=== PATIENT | male | born 1960 | race Caucasian/White ===

== ENCOUNTER 2021-04-09 12:04 | Observation (INO) | payer MEDICARE ==
[2021-04-09 12:50] LABS: Basophils # (A) 0.1 k/uL (0-0.2); Basophils % (A) 1 %; Eosinophils # (A) 0.2 k/uL (0-0.7); Eosinophils % (A) 3 %; HCT 51.4 % (39.0-53.0); HGB 17.3 gm/dL (13.0-17.5); Lymphocytes # (A) 2.3 k/uL (1.0-4.8); Lymphocytes % (A) 28 %; MCH 31.8 pg (25.0-35.0); MCHC 33.6 g/dL (31.0-37.0); MCV 94.8 fL (80.0-100.0); Mean Platelet Volume 7.6; Monocytes # (A) 0.5 k/uL (0-1.0); Monocytes % (A) 7 %; Neutrophils # (A) 4.8 k/uL (1.3-7.7); Neutrophils % (A) 60 %; Platelet Count 272 k/uL (150-450); RBC 5.42 m/uL (4.30-5.90); RDW 12.2 % (11.5-15.5)
[2021-04-09 12:59] LABS: INR 0.9 (<1.2); Prothrombin Time 9.9 sec (9.0-12.0)
[2021-04-09 13:06] LABS: ALT 35 U/L (4-49); AST 35 U/L (17-59); African American GFR (CKD) >90 (>60 ml/min/1.73 sqM); Albumin 4.2 g/dL (3.5-5.0); Alkaline Phosphatase 90 U/L (38-126); Anion Gap 7 mmol/L; Blood Urea Nitrogen 11 mg/dL (9-20); Calcium 9.4 mg/dL (8.4-10.2); Carbon Dioxide 28 mmol/L (22-30); Chloride 103 mmol/L (98-107); Glucose 110 mg/dL (74-99); Non-African American GFR(CKD) >90 (>60 ml/min/1.73 sqM); Potassium 4.4 mmol/L (3.5-5.1); Sodium 138 mmol/L (137-145); Total Bilirubin 0.2 mg/dL (0.2-1.3); Total Protein 6.9 g/dL (6.3-8.2)
--- NOTE | 2021-04-09 13:37 | XR ---
EXAMINATION TYPE: XR chest 2V DATE OF EXAM: 04/09/2021 COMPARISON: NONE HISTORY: Chest pain. Shortness of breath. TECHNIQUE: Frontal and lateral views of the chest are obtained. FINDINGS: There is no focal air space opacity, pleural effusion, or pneumothorax seen. The cardiac silhouette size is within normal limits. The osseous structures are intact. IMPRESSION: No acute cardiopulmonary process.
[2021-04-09] MEDS ORDERED: ASPIRIN 81 MG PO STA (14:00)
[2021-04-09] MEDS ORDERED: NITROGLYCERIN OINT 1 INCH/GM PACKET TOPICAL STA (14:00)
[2021-04-09] MEDS ORDERED: ACETAMINOPHEN TAB 500 MG TAB PO STA (14:15)
--- NOTE | 2021-04-09 14:19 | ED ---
General Adult HPI - General Chief complaint: Chest Pain Stated complaint: Recheck/Abnormal EKG Time Seen by Provider: 04/09/21 12:10 Source: patient, RN notes reviewed, old records reviewed Mode of arrival: ambulatory Limitations: no limitations - History of Present Illness Initial comments: This is a 60-year-old male who presents emergency Department complaining of intermittent chest pain for the last 2 weeks. Patient states is also associated with exertion and difficulty breathing. Patient states the pain on occasion will radiate to his left shoulder and arm. Patient states she is a heavy smoker does not have any other medical problems. Patient states she does have strong family history of heart disease. Patient states currently he is pain-free. Patient denies any recent fever chills or cough. Patient has noticed over the last few weeks he is having some difficulty hearing and some tinnitus. Patient denies any visual disturbances patient's disturbance or numbness or weakness. Patient does complain of a headache. Patient denies any leg swelling or calf tenderness. - Related Data Allergies Allergy/AdvReac Type Severity Reaction Status Date / Time No Known Allergies Allergy Verified 04/09/21 12:21 Review of Systems ROS Statement: Those systems with pertinent positive or pertinent negative responses have been documented in the HPI. ROS Other: All systems not noted in ROS Statement are negative. Past Medical History Additional Past Medical History / Comment(s): migraine, skin ca History of Any Multi-Drug Resistant Organisms: None Reported Additional Past Surgical History / Comment(s): skin cancer removal Past Psychological History: No Psychological Hx Reported Smoking Status: Current some day smoker Past Alcohol Use History: None Reported Past Drug Use History: None Reported General Exam - General Exam Comments Initial Comments: GENERAL: Patient is well-developed and well-nourished. Patient is nontoxic and well- hydrated and is in no acute distress. ENT: Neck is soft and supple. No significant lymphadenopathy is noted. Oropharynx is clear. Moist mucous membranes. Neck has full range of motion without eliciting any pain. EYES: The sclera were anicteric and conjunctiva were pink and moist. Extraocular movements were intact and pupils were equal round and reactive to light. Eyelids were unremarkable. PULMONARY: Unlabored respirations. Good breath sounds bilaterally. No audible rales rhonchi or wheezing was noted. CARDIOVASCULAR: There is a regular rate and rhythm without any murmurs gallops or rubs. ABDOMEN: Soft and nontender with normal bowel sounds. SKIN: Skin is clear with no lesions or rashes and otherwise unremarkable. NEUROLOGIC: Patient is alert and oriented x3. Cranial nerves II through XII are grossly intact. Motor and sensory are also intact. Normal speech, volume and content. Symmetrical smile. MUSCULOSKELETAL: Normal extremities with adequate strength and full range of motion. LYMPHATICS: No significant lymphadenopathy is noted PSYCHIATRIC: Normal psychiatric evaluation. Limitations: no limitations Course Vital Signs 04/09/21 04/09/21 12:18 14:00 Temperature 98.2 F Pulse Rate 82 Respiratory 18 18 Rate Blood Pressure 170/103 O2 Sat by Pulse 98 Oximetry Medical Decision Making - Medical Decision Making EKG shows normal sinus rhythm at 83 bpm LA interval is on a 14 QRS is 82 QT interval 370 QTC is 444 per patient's EKG shows no ST segment elevation or depression. Chest x-ray showed no acute abnormality. CT of the brain showed no acute abnormality. I started the patient on heparin. Patient received aspirin and Nitropaste to the emergency department. I spoke with the [facility] he agreed to admit the patient admitted the patient wrote admitting orders I consulted cardiology and I continued aspirin and heparin Nitropaste on the floor. - Lab Data Result diagrams: 04/09/21 12:39 04/09/21 12:39 Lab Results 04/09/21 04/09/21 04/09/21 Range/Units 12:39 12:39 12:39 WBC 8.0 (3.8-10.6) k/uL RBC 5.42 (4.30-5.90) m/uL Hgb 17.3 (13.0-17.5) gm/dL Hct 51.4 (39.0-53.0) % MCV 94.8 (80.0-100.0) fL MCH 31.8 (25.0-35.0) pg MCHC 33.6 (31.0-37.0) g/dL RDW 12.2 (11.5-15.5) % Plt Count 272 (150-450) k/uL MPV 7.6 Neutrophils % 60 % Lymphocytes % 28 % Monocytes % 7 % Eosinophils % 3 % Basophils % 1 % Neutrophils # 4.8 (1.3-7.7) k/uL Lymphocytes # 2.3 (1.0-4.8) k/uL Monocytes # 0.5 (0-1.0) k/uL Eosinophils # 0.2 (0-0.7) k/uL Basophils # 0.1 (0-0.2) k/uL PT 9.9 (9.0-12.0) sec INR 0.9 (<1.2) APTT 25.0 (22.0-30.0) sec Sodium 138 (137-145) mmol/L Potassium 4.4 (3.5-5.1) mmol/L Chloride 103 (98-107) mmol/L Carbon Dioxide 28 (22-30) mmol/L Anion Gap 7 mmol/L BUN 11 (9-20) mg/dL Creatinine 0.76 (0.66-1.25) mg/dL Est GFR (CKD-EPI)AfAm >90 (>60 ml/min/1.73 sqM) Est GFR (CKD-EPI)NonAf >90 (>60 ml/min/1.73 sqM) Glucose 110 H (74-99) mg/dL Calcium 9.4 (8.4-10.2) mg/dL Total Bilirubin 0.2 (0.2-1.3) mg/dL AST 35 (17-59) U/L ALT 35 (4-49) U/L Alkaline Phosphatase 90 (38-126) U/L Troponin I (0.000-0.034) ng/mL Total Protein 6.9 (6.3-8.2) g/dL Albumin 4.2 (3.5-5.0) g/dL 04/09/21 Range/Units 12:39 WBC (3.8-10.6) k/uL RBC (4.30-5.90) m/uL Hgb (13.0-17.5) gm/dL Hct (39.0-53.0) % MCV (80.0-100.0) fL MCH (25.0-35.0) pg MCHC (31.0-37.0) g/dL RDW (11.5-15.5) % Plt Count (150-450) k/uL MPV Neutrophils % % Lymphocytes % % Monocytes % % Eosinophils % % Basophils % % Neutrophils # (1.3-7.7) k/uL Lymphocytes # (1.0-4.8) k/uL Monocytes # (0-1.0) k/uL Eosinophils # (0-0.7) k/uL Basophils # (0-0.2) k/uL PT (9.0-12.0) sec INR (<1.2) APTT (22.0-30.0) sec Sodium (137-145) mmol/L Potassium (3.5-5.1) mmol/L Chloride (98-107) mmol/L Carbon Dioxide (22-30) mmol/L Anion Gap mmol/L BUN (9-20) mg/dL Creatinine (0.66-1.25) mg/dL Est GFR (CKD-EPI)AfAm (>60 ml/min/1.73 sqM) Est GFR (CKD-EPI)NonAf (>60 ml/min/1.73 sqM) Glucose (74-99) mg/dL Calcium (8.4-10.2) mg/dL Total Bilirubin (0.2-1.3) mg/dL AST (17-59) U/L ALT (4-49) U/L Alkaline Phosphatase (38-126) U/L Troponin I <0.012 (0.000-0.034) ng/mL Total Protein (6.3-8.2) g/dL Albumin (3.5-5.0) g/dL Critical Care Time Critical Care Time: Yes Total Critical Care Time: 35 Disposition Clinical Impression: Unstable angina pectoris, Tinnitus Disposition: ADMITTED IP TO THIS [facility] Referrals: Nonstaff,Physician [Primary Care Provider] - 1-2 days Time of Disposition: 14:24
--- NOTE | 2021-04-09 14:20 | CT ---
EXAMINATION TYPE: CT brain wo con DATE OF EXAM: 04/09/2021 COMPARISON: None HISTORY: headache CT DLP: 1139.7 mGycm Automated exposure control for dose reduction was used. FINDINGS: No acute intracranial hemorrhage, large vessel territory infarct, mass, mass effect or midline shift. No hydrocephalus. The sheriff-white distinction is maintained. Subarachnoid basal cisterns and cerebral sulci are not effaced. Remaining skull base of an unremarkable appearance. The visualized paranasal sinuses and air cells are well-developed and pneumatized. The globes and orbits are within normal chan its.. IMPRESSION: NO ACUTE INTRACRANIAL PROCESS.
[2021-04-09] MEDS ORDERED: NITROGLYCERIN SL TABS 0.4 MG TAB SUBLINGUAL PRN (14:24)
[2021-04-09] MEDS ORDERED: ACETAMINOPHEN TAB 325 MG TAB PO STA (16:35)
[2021-04-09] MEDS ORDERED: MECLIZINE 25 MG TAB PO PRN (18:42)
[2021-04-09] MEDS ORDERED: SUMAtriptan succinate 50 MG TAB PO PRN (18:42)
[2021-04-09] MEDS ORDERED: SUMATRIPTAN 5 MG EA NOSTRIL PRN (18:42)
--- NOTE | 2021-04-09 18:43 | P.HPIM ---
History of Present Illness H&P Date: 04/09/21 Chief Complaint: Chest pain for 2 weeks Mr. Saha is a 60-year-old male with the past medical history of migraine headaches and skin cancer status post removal coming to the hospital with a chief complaint of chest pain that has been going on for 2 weeks. Patient states that he is in his usual state of health but for the past 2 weeks started to have left-sided chest pain that is radiating to left shoulder and left arm. Patient also mentions about having shortness of breath associated with the chest pain. He states that he exercises every day and for the past 2 weeks he has been feeling short of breath while performing his daily exercise routine. Patient denies having any loss of consciousness or dizziness. Patient states for the past 6 months he has been having hearing problem in the right ear and also some tinnitus associated with it. Patient denies having any headaches, blurring of vision associated with this hearing issues he did patient states that he has history of cluster headaches and takes Imitrex. He has significant history of smoking he smokes one pack of cigarettes a day and states that his father has history of coronary artery disease and congestive heart failure. Patient was complaining of headache as he just received nitroglycerin for his chest pain. In the ER patient had chest x-ray that was negative for any acute cardiopulmona ry process and a CAT scan of the brain that was negative for any acute intracranial process. EKG done shows normal sinus rhythm with heart rate of 83 per minute. On reviewing his labs troponins 2 less than 0.012. Sodium 138, potassium 4.4, chloride 103, bicarb 28, BNP 11, creatinine 0.76. White count of 8, hemoglobin of 17.3, platelets of 272. Review of Systems REVIEW OF SYSTEMS: CONSTITUTIONAL: No fever, no malaise, no fatigue. HEENT: No headache, no neck stiffness, no blurring of vision. As mentioned above in terms of his hearing loss and tinnitus CARDIOVASCULAR: As per HPI PULMONARY: No cough or difficulty in breathing GASTROINTESTINAL: No Abdominal pain nausea vomiting or diarrhea NEUROLOGICAL: No weakness of extremities HEMATOLOGICAL: Denies any bleeding or petechiae. GENITOURINARY: Denies any burning micturition, frequency, or urgency. MUSCULOSKELETAL/RHEUMATOLOGICAL: Denies any joint pain, swelling, or any muscle pain. ENDOCRINE: Denies polyuria polydipsia or heat or cold intolerance The rest of the 14-point review of systems is negative. Past Medical History Additional Past Medical History / Comment(s): migraine, skin ca History of Any Multi-Drug Resistant Organisms: None Reported Additional Past Surgical History / Comment(s): skin cancer removal Past Psychological History: No Psychological Hx Reported Smoking Status: Current some day smoker Past Alcohol Use History: None Reported Past Drug Use History: None Reported Medications and Allergies Home Medications Medication Instructions Recorded Confirmed Type Cetirizine HCl [Zyrtec] 10 mg PO DAILY 04/09/21 04/09/21 History Fluticasone Nasal [place] [Flonase 1 - 2 spr EA NOSTRIL BID PRN 04/09/21 04/09/21 History Nasal [place]] Meclizine HCl 25 mg PO TID PRN 04/09/21 04/09/21 History SUMAtriptan SUCCINATE [Imitrex] 100 mg PO BID PRN 04/09/21 04/09/21 History SUMAtriptan [Imitrex] 1 spray EA NOSTRIL ONCE PRN 04/09/21 04/09/21 History Allergies Allergy/AdvReac Type Severity Reaction Status Date / Time No Known Allergies Allergy Verified 04/09/21 14:42 Physical Exam Vitals: Vital Signs Temp Pulse Resp BP Pulse Ox 04/09/21 16:42 82 16 141/95 98 04/09/21 16:29 79 16 140/95 99 04/09/21 15:21 141/100 04/09/21 14:58 77 18 172/131 99 04/09/21 14:00 18 04/09/21 12:18 98.2 F 82 18 170/103 98 Intake and Output 04/09/21 04/09/21 04/09/21 06:59 14:59 22:59 Other: Weight 82.1 kg PHYSICAL EXAMINATION: GENERAL: Comfortably lying up in the bed appears to be no acute distress. Complaining of headache as he just received nitroglycerin for chest pain HEENT: Pupils are round and equally reacting to light. EOMI. No scleral icterus. No conjunctival pallor. CARDIOVASCULAR: S1 and S2 present. No murmurs, rubs, or gallops. PULMONARY: Bilateral breath sounds positive. No wheeze or crackles. ABDOMEN: Soft,non -tender, normal bowel sounds. No guarding or rigidity. MUSCULOSKELETAL: No joint swelling or deformity. EXTREMITIES: No edema NEUROLOGICAL: Gross neurological examination did not reveal any focal deficits. SKIN:No rash Results CBC & Chem 7: 04/09/21 12:39 04/09/21 12:39 Labs: Abnormal Lab Results - Last 24 Hours (Table) 04/09/21 Range/Units 12:39 Glucose 110 H (74-99) mg/dL Assessment and Plan Assessment: ASSESSMENT Chest pain Exertional dyspnea Chronic Right-sided hearing loss and tinnitus Cluster headaches History of skin cancer status post removal PLAN; patient is admitted for acute coronary artery syndrome to be ruled out. We'll get serial troponins and EKG. Patient complains of hearing loss and tinnitus in the right ear that has been going on for 6 months, he had a CT of the head that was negative for any acute intracranial process. Patient has been restarted on his home medications. Cardiology has been consulted. Further recommendations to follow depending on the progress of the patient.
[2021-04-09] MEDS: NITROGLYCERIN OINT 1 INCH/GM PACKET TOPICAL SCH ×2 (20:34→21:59)
[2021-04-09] MEDS: NICOTINE 21MG/24HR PATCH TRANSDERM SCH (22:28)
[2021-04-10] MEDS: NITROGLYCERIN OINT 1 INCH/GM PACKET TOPICAL SCH (05:18)
[2021-04-10] MEDS: NICOTINE 21MG/24HR PATCH TRANSDERM SCH (07:28)
[2021-04-10 07:55] VITALS: RESP 16
[2021-04-10] MEDS ORDERED: ASPIRIN 325 MG TAB PO SCH (09:00)
[2021-04-10 10:42] LABS: Basophils # (A) 0.06 X 10*3/uL (0.00-0.10); Basophils % (A) 0.6 %; Eosinophils # (A) 0.18 X 10*3/uL (0.04-0.35); Eosinophils % (A) 1.9 %; HCT 48.3 % (39.6-50.0); HGB 15.9 g/dL (13.0-17.0); Lymphocytes # (A) 2.65 X 10*3/uL (0.90-5.00); MCH 31.3 pg (27.0-32.0); MCHC 32.9 g/dL (32.0-37.0); MCV 95.1 fL (80.0-97.0); Mean Platelet Volume 10.2 fL (9.5-12.2); Monocytes # (A) 1.12 X 10*3/uL (0.20-1.00); Monocytes % (A) 11.8 %; Neutrophils # (A) 5.43 X 10*3/uL (1.80-7.70); Neutrophils % (A) 57.3 %; Platelet Count 237 X 10*3/uL (140-440); RBC 5.08 X 10*6/uL (4.40-5.60); WBC 9.48 X 10*3/uL (4.50-10.00)
[2021-04-10] MEDS ORDERED: LOSARTAN 25 MG TAB PO SCH (11:15)
[2021-04-10] MEDS ORDERED: ATORVASTATIN 20 MG TAB PO SCH (11:15)
--- NOTE | 2021-04-10 11:19 | P.CRDCN ---
History of Present Illness Consult date: 04/10/21 Requesting physician: Waldo Garcia Consult reason: chest pain Chief complaint: Unstable angina, tendinitis History of present illness: This is Jim Moraes NP dictating a consult on this patient on behalf of Dr. Gore. The patient was interviewed and examined. HPI: Patient is a 60-year-old male who presented to the hospital with complaints of chest pain and ringing in his ears. He states that for the last couple weeks he's had some chest pain/pressure in his left shoulder and arm and radiating up into his neck. He has complained of some shortness of breath during this time. He reports that many years ago he was overweight and was on medication for hypertension, however he lost much weight and started staying active and he stopped taking blood pressure medication. His vital signs since he's been admitted demonstrate significant hypertension. He reports she's had frequent headaches, cluster migraines since he was 17 years old, he does take Imitrex. He does not regularly see a physician. ROS: [No fever, chills, or rigors] [no cough, phlegm, or expectoration] [no nausea, vomiting, or diarrhea] [no hematuria, dysuria] [no musculoskelatal complaints] [no strokes or seizures] [no skin lesions] EXAMINATION: GENERAL: Well-appearing, well-nourished and in no acute distress. NECK: Supple without JVD or thyromegaly. LUNGS: Breath sounds clear to auscultation bilaterally. Respiration equal and unlabored. No wheezes, rales or rhonchi. HEART: Regular rate and rhythm without murmurs, rubs or gallops. S1 and S2 heard. EXTREMITIES: Normal range of motion, no edema. No clubbing or cyanosis. Peripheral pulses intact and strong. REVIEW OF LABS, ECG & MEDICAL DATA: LABS: Hemoglobin 15.9, PT 9.9, INR 0.9, APTT 25, sodium 138, potassium 4.4 B1 11, creatinine 0.76 serial troponins 3 less than 0.012 EKG: Normal sinus rhythm VITALS: Temp 98.3, pulse 80, blood pressure 167/111, O2 sat 97% on room air IMPRESSION/PLAN: 1. Uncontrolled hypertension-started hydrochlorothiazide 25 mg 1 tab daily. Start lisinopril 10 mg 1 tab daily. Give these doses today. 2. Atypical chest pain-echocardiogram Further cardiac workup will be completed after patient's hypertension is controlled. If patient's echo is relatively stable, and his hypertension is under better control he can be discharged from our standpoint. We will have him follow-up with us in the office on . Thank you for the consult and allowing us to participate in the care of this patient. Past Medical History Additional Past Medical History / Comment(s): migraine, skin ca History of Any Multi-Drug Resistant Organisms: None Reported Past Surgical History: No Surgical Hx Reported Additional Past Surgical History / Comment(s): skin cancer removal Past Anesthesia/Blood Transfusion Reactions: No Reported Reaction Past Psychological History: No Psychological Hx Reported Smoking Status: Current some day smoker Past Alcohol Use History: None Reported Past Drug Use History: None Reported Medications and Allergies Home Medications Medication Instructions Recorded Confirmed Type Cetirizine HCl [Zyrtec] 10 mg PO DAILY 04/09/21 04/09/21 History Fluticasone Nasal [place] [Flonase 1 - 2 spr EA NOSTRIL BID PRN 04/09/21 04/09/21 History Nasal [place]] Meclizine HCl 25 mg PO TID PRN 04/09/21 04/09/21 History SUMAtriptan SUCCINATE [Imitrex] 100 mg PO BID PRN 04/09/21 04/09/21 History SUMAtriptan [Imitrex] 1 spray EA NOSTRIL ONCE PRN 04/09/21 04/09/21 History Allergies Allergy/AdvReac Type Severity Reaction Status Date / Time No Known Allergies Allergy Verified 04/09/21 14:42 Physical Exam Vitals: Vital Signs Temp Pulse Pulse Resp BP BP BP 04/10/21 09:31 167/111 04/10/21 07:00 98.3 F 80 16 164/107 04/10/21 01:57 98.2 F 66 18 140/88 04/10/21 01:49 79 04/09/21 21:15 98.6 F 79 18 142/86 04/09/21 20:00 79 18 04/09/21 16:42 82 16 141/95 04/09/21 16:29 79 16 140/95 04/09/21 15:21 141/100 04/09/21 14:58 77 18 172/131 04/09/21 14:00 18 08/21/21 12:18 98.2 F 82 18 170/103 Pulse Ox 04/10/21 09:31 04/10/21 07:00 97 04/10/21 01:57 96 04/10/21 01:49 04/09/21 21:15 96 04/09/21 20:00 04/09/21 16:42 98 04/09/21 16:29 99 04/09/21 15:21 04/09/21 14:58 99 04/09/21 14:00 04/09/21 12:18 98 Intake and Output 04/09/21 04/10/21 04/10/21 22:59 06:59 14:59 Other: Voiding Method Toilet Toilet # Voids 2 3 Weight 82.1 kg Results 04/10/21 04:54 04/09/21 12:39 Cardiac Enzymes 04/09/21 04/09/21 04/09/21 Range/Units 12:39 12:39 15:08 AST 35 (17-59) U/L Troponin I <0.012 <0.012 (0.000-0.034) ng/mL 04/09/21 Range/Units 18:29 AST (17-59) U/L Troponin I <0.012 (0.000-0.034) ng/mL Coagulation 04/09/21 Range/Units 12:39 PT 9.9 (9.0-12.0) sec APTT 25.0 (22.0-30.0) sec CBC 04/09/21 04/10/21 Range/Units 12:39 04:54 WBC 8.0 9.48 (3.8-10.6) k/uL RBC 5.42 5.08 (4.30-5.90) m/uL Hgb 17.3 15.9 (13.0-17.5) gm/dL Hct 51.4 48.3 (39.0-53.0) % Plt Count 272 237 (150-450) k/uL Comprehensive Metabolic Panel 04/09/21 Range/Units 12:39 Sodium 138 (137-145) mmol/L Potassium 4.4 (3.5-5.1) mmol/L Chloride 103 (98-107) mmol/L Carbon Dioxide 28 (22-30) mmol/L BUN 11 (9-20) mg/dL Creatinine 0.76 (0.66-1.25) mg/dL Glucose 110 H (74-99) mg/dL Calcium 9.4 (8.4-10.2) mg/dL AST 35 (17-59) U/L ALT 35 (4-49) U/L Alkaline Phosphatase 90 (38-126) U/L Total Protein 6.9 (6.3-8.2) g/dL Albumin 4.2 (3.5-5.0) g/dL Current Medications Generic Name Dose Route Start Last Admin Trade Name Freq PRN Reason Stop Dose Admin Aspirin 325 mg 04/10/21 09:00 04/10/21 07:28 Aspirin 325 Mg Tab PO 325 mg DAILY DARION Administration Meclizine HCl 25 mg 04/09/21 18:42 Meclizine 25 Mg Tab PO TID PRN Vertigo Nicotine 1 patch 04/09/21 22:15 04/10/21 07:28 Nicotine 21mg/24hr Patch TRANSDERM 1 patch DAILY DARION Administration Nitroglycerin 0.4 mg 04/09/21 14:24 Nitroglycerin Sl Tabs 0.4 Mg Tab SUBLINGUAL Q5M PRN Chest Pain Non-Formulary Medication 1 spray 04/09/21 18:42 Sumatriptan [Imitrex] EA NOSTRIL ONCE PRN Migraine Headache Sumatriptan Succinate 100 mg 04/09/21 18:42 04/09/21 22:03 Sumatriptan Succinate 50 Mg Tab PO 100 mg BID PRN Administration Migraine Headache Intake and Output 04/09/21 04/10/21 04/10/21 22:59 06:59 14:59 Other: Voiding Method Toilet Toilet # Voids 2 3 Weight 82.1 kg 04/10/21 04:54 04/09/21 12:39
[2021-04-10] MEDS ORDERED: LOSARTAN 50 MG TAB PO SCH (11:30)
[2021-04-10 12:39] LABS: African American GFR (CKD) 111.7 (60.0-200.0); Anion Gap 8.9 mmol/L (4.00-12.00); BUN/Creat Ratio 16.25 Ratio (12.00-20.00); Calcium 8.9 mg/dL (8.7-10.3); Carbon Dioxide 24.1 mmol/L (21.6-31.8); Chol/HDL Ratio 3.69; LDL Cholesterol,Calculated 79.4 mg/dL (0.0-131.0); Non-African American GFR(CKD) 96.4 (60.0-200.0); Potassium 4.4 mmol/L (3.5-5.5); VLDL Calculation 52.6 mg/dL (5.00-40.00)
[2021-04-10 13:40] LABS: Hemoglobin A1C 5.9 % (4.0-6.0)
[2021-04-10 14:52] VITALS: BP 151/84; PULSE 89; TEMP 98.4
== END 2021-04-10 14:55 | disposition home or self-care (01) ==
LOC: EC 12:04 → 6NMEDSUR 14:25
PROVIDERS: ADMIT Internal Medicine; ATTEND Internal Medicine
DX: R07.89 Other chest pain (principal); I10 Essential (primary) hypertension; R06.09 Other forms of dyspnea; H93.11 Tinnitus, right ear; H91.91 Unspecified hearing loss, right ear; G44.009 Cluster headache syndrome, unspecified, not intractable; F17.210 Nicotine dependence, cigarettes, uncomplicated; Z79.899 Other long term (current) drug therapy; Z85.828 Personal history of other malignant neoplasm of skin; Z82.49 Family history of ischemic heart disease and other diseases of the circulatory system
CPT/HCPCS: 99291; 36415; 93005; 80061; 80053; 80048; 84443; 84484; 85025 ×2; 85610; 85730; 83036; 71046; 70450; G0378 ×2; S4990 ×2

== ENCOUNTER 2024-07-23 10:10 | Emergency (ER) | payer MEDICARE ==
[2024-07-23 10:15] VITALS: PULSE 87; RESP 20; TEMP 97.6
[2024-07-23] MEDS: LIDOCAINE 4% PATCH TOPICAL STA (11:01)
[2024-07-23] MEDS: SODIUM CHLORIDE 0.9% 1,000 ML IV STA (11:03)
[2024-07-23] MEDS: ONDANSETRON 4 MG/2 ML VIAL IVP STA (11:04)
[2024-07-23] MEDS: MORPHINE SULFATE 4 MG/ML SYRINGE IVP STA ×2 (11:04→14:02)
[2024-07-23] MEDS: PANTOPRAZOLE 40 MG/10 ML VIAL IVP STA (11:05)
[2024-07-23 11:08] LABS: Basophils # (A) 0.1 k/uL (0-0.2); Basophils % (A) 1 %; Eosinophils # (A) 0.2 k/uL (0-0.7); Eosinophils % (A) 2 %; HCT 51.7 % (39.0-53.0); HGB 17.4 gm/dL (13.0-17.5); Lymphocytes # (A) 2.5 k/uL (1.0-4.8); Lymphocytes % (A) 26 %; MCH 31.1 pg (25.0-35.0); MCHC 33.6 g/dL (31.0-37.0); MCV 92.7 fL (80.0-100.0); Monocytes # (A) 0.5 k/uL (0-1.0); Monocytes % (A) 5 %; Neutrophils # (A) 6.3 k/uL (1.3-7.7); Neutrophils % (A) 65 %; Platelet Count 260 k/uL (150-450); RBC 5.58 m/uL (4.30-5.90); RDW 11.8 % (11.5-15.5); WBC 9.8 k/uL (3.8-10.6)
[2024-07-23 11:17] LABS: INR 0.9 (<1.2); Partial Thromboplastin Time 27.2 sec (22.0-30.0); Prothrombin Time 10.3 sec (10.0-12.5)
[2024-07-23 11:20] LABS: ALT 31 U/L (4-49); AST 22 U/L (17-59); African American GFR (CKD) >90 (>60 ml/min/1.73 sqM); Albumin 4.3 g/dL (3.5-5.0); Alkaline Phosphatase 77 U/L (38-126); Amylase 56 U/L (30-110); Anion Gap 5 mmol/L; Blood Urea Nitrogen 12 mg/dL (9-20); Calcium 8.8 mg/dL (8.4-10.2); Carbon Dioxide 24 mmol/L (22-30); Chloride 108 mmol/L (98-107); Glucose 103 mg/dL (74-99); Lipase 124 U/L (23-300); Non-African American GFR(CKD) >90 (>60 ml/min/1.73 sqM); Potassium 4.3 mmol/L (3.5-5.1); Sodium 137 mmol/L (137-145); Total Bilirubin 0.6 mg/dL (0.2-1.3); Total Protein 7.1 g/dL (6.3-8.2)
[2024-07-23 12:18] LABS: Appearance,Urine Clear (Clear); Bilirubin,Urine Negative (Negative); Blood,Urine Negative (Negative); Color,Urine Colorless; Glucose,Urine (UA) Negative (Negative); Ketones,Urine Negative (Negative); Leukocyte Esterase,Urine Negative (Negative); Nitrite,Urine Negative (Negative); PH, Urine 5.5 (5.0-8.0); Protein,Urine Negative (Negative); Specific Gravity,Urine 1.007 (1.001-1.035); Urobilinogen,Urine <2.0 mg/dL (<2.0)
--- NOTE | 2024-07-23 12:33 | CT ---
EXAMINATION TYPE: CT abdomen pelvis w con DATE OF EXAM: 07/23/2024 11:52 AM COMPARISON: None. CLINICAL INDICATION: Male, 63 years old with history of left lower back pain/flank pain, Left lower b ack pain TECHNIQUE: Axial images were obtained from above the diaphragm to the pubic rami in the axial plane a t 5 mm thick sections. Reconstructed images are reviewed on the computer in the coronal plane. CONTRAST: 100 mL of Isovue 300. Study performed without Oral Contrast DLP: Combined 1896.2 mGycm, Automated exposure control for dose reduction was used. FINDINGS: Limited CT sections are obtained the lung bases. There is a punctate nodule along the anterolateral right lung. Series 201 image 5. There is a peripheral punctate nodularity right middle lobe, series 2 01 image 3. Lung bases otherwise are otherwise clear. CT ABDOMEN: Under the left diaphragm there is a 2.1 x 2.4 x 2.1 cm rounded density of uncertain etiol ogy. An enlarged lymph node could be considered within the differential. Series 201 image 12, series 202 image 33. Liver: Some mild fatty infiltration may be present. An enhancing 1.2 cm hemangioma may be in the righ t lobe liver, series 201 image 24. Spleen: Normal Pancreas: Normal Adrenal glands: The adrenal glands are normal. Gallbladder: Normal Kidneys: No masses are evident. No hydronephrosis is present. Small cortical renal cysts is in the anterior mid right kidney. Delayed images were obtained through the kidneys, which remain unremarkab le. Aorta: Vascular calcification is within the aorta. Inferior vena cava: Normal. CT PELVIS: Loops of bowel within the abdomen and pelvis are normal. The study is without oral contrast limit ing bowel evaluation Appendix: Not identified Urinary bladder: Decompressed with limited evaluation Genitourinary structures: Prostate is unremarkable Osseous structures: No suspicious lytic or sclerotic lesions. IMPRESSION: 1. Mass under the left diaphragm of uncertain etiology. Lymphadenopathy is within the differential. 2. Couple punctate nodules within the right anterior lung base. [facility], Workstation: [facility], 07/23/2024 12:30 PM
--- NOTE | 2024-07-23 12:50 | ED ---
General Adult HPI - General Chief complaint: Back Pain/Injury Stated complaint: abd/back pain Time Seen by Provider: 07/23/24 10:38 Source: patient, RN notes reviewed, old records reviewed Mode of arrival: ambulatory Limitations: no limitations - History of Present Illness Initial comments: Patient is a 63-year-old male who presents emergency department complaining of abdominal pain and back pain. States has been ongoing for the last week. Unknown what caused it. Believes it is related to a muscle strain originally was attempting home Norflex which did not improve the pain. States it is located in the left lower paraspinal muscles with some radiation to left flank. No urinary complaints. No nausea or vomiting. No diarrhea or constipation. No anterior abdominal pain. No chest pain or shortness of breath. No significant past medical history. Presents for further evaluation at this time. - Related Data Home Medications Medication Instructions Recorded Confirmed Fluticasone/Umeclidin/Vilanter 1 puff INHALATION RT-DAILY 07/23/24 07/23/24 [Trelegy Ellipta 100-62.5-25] Loratadine [Claritin] 10 mg PO DAILY 07/23/24 07/23/24 Omeprazole Magnesium [PriLOSEC OTC] 20 mg PO DAILY 07/23/24 07/23/24 SUMAtriptan succinate 4 mg SQ DAILY PRN 07/23/24 07/23/24 Tamsulosin HCl [Flomax] 0.4 mg PO DAILY 07/23/24 07/23/24 Valsartan 160 mg PO DAILY 07/23/24 07/23/24 Previous Rx's Medication Instructions Recorded Gabapentin [Neurontin] 100 mg PO TID PRN 5 Days #15 cap 07/23/24 Lidocaine 4% Patch 1 patch TOPICAL DAILY 14 Days #14 07/23/24 patch Allergies Allergy/AdvReac Type Severity Reaction Status Date / Time No Known Allergies Allergy Verified 07/23/24 13:31 Review of Systems ROS Statement: Those systems with pertinent positive or pertinent negative responses have been documented in the HPI. Review of Systems: CONST: Denies fever EYES: Denies blurry vision ENT: Denies nasal congestion C/V: Denies Chest pain RESP: Denies shortness of breath GI: Denies abdominal pain : Denies dysuria SKIN: Denies rash. MSK: Endorses back pain, flank pain NEURO: Denies headache ROS Other: All systems not noted in ROS Statement are negative. Past Medical History Additional Past Medical History / Comment(s): migraine, skin ca History of Any Multi-Drug Resistant Organisms: None Reported Past Surgical History: Bowel Resection, Hernia Repair Additional Past Surgical History / Comment(s): skin cancer removal Past Anesthesia/Blood Transfusion Reactions: No Reported Reaction Past Psychological History: No Psychological Hx Reported Smoking Status: Current some day smoker Past Alcohol Use History: None Reported Past Drug Use History: None Reported General Exam - General Exam Comments Initial Comments: General: Appears in no acute distress. HEAD: Normal with no signs of head trauma. EYES: EOMI ENT: Hearing grossly intact, normal oropharynx. RESPIRATORY: Clear breath sounds bilaterally. No wheezes, rales, or rhonchi. C/V: Regular rate and rhythm. S1 and S2 auscultated, no edema, peripheral pulses 2+ and intact throughout ABD: Abd is soft, nontender, nondistended no guarding or rebound tenderness. No peritoneal signs. EXT: Normal range of motion, no obvious deformity. Tenderness to palpation of the lower lumbar paraspinal muscles with radiation to the left flank. No significant midline tenderness to palpation of the lumbar spine. SKIN: No rashes or lesions observed on exposed skin. NEURO: Alert and oriented x 4. No focal deficits. Limitations: no limitations Course Vital Signs 07/23/24 07/23/24 10:12 14:41 Temperature 97.6 F Pulse Rate 87 87 Respiratory 20 20 Rate Blood Pressure 165/104 134/87 O2 Sat by Pulse 99 97 Oximetry Medical Decision Making - Medical Decision Making Was pt. sent in by a medical professional or institution (Dr. PA, INSURANCE COUNSEL, urgent care, hospital, or fdc...) When possible be specific @ -No Did you speak to anyone other than the patient for history (EMS, parent, family, police, friend...)? What history was obtained from this source @ -No Did you review nursing and triage notes (agree or disagree)? Why? @ -I reviewed and agree with nursing and triage notes Were old charts reviewed (outside hosp., previous admission, EMS record, old EKG, old radiological studies, urgent care reports/EKG's, fdc records)? Report findings @ -No old charts were reviewed Differential Diagnosis (chest pain, altered mental status, abdominal pain women, abdominal pain men, vaginal bleeding, weakness, fever, dyspnea, syncope, headache, dizziness, GI bleed, back pain, seizure, CVA, palpatations, mental health, musculoskeletal)? @ -Muscle strain, renal stone, diverticulitis. This list is not all inclusive. EKG interpreted by me (3pts min.). @ -As above X-rays interpreted by me (1pt min.). @ -None done CT interpreted by me (1pt min.). @ -CT imaging of the lumbar spine revealed a slipped disc as well as chronic degenerative changes. Possible radiculopathy as well. CT imaging the abdomen pelvis revealed a hemangioma of the liver which is likely benign but also a large lymph node under the left diaphragm as well as pulmonary nodules in the right lung. U/S interpreted by me (1pt. min.). @ -None done What testing was considered but not performed or refused? (CT, X-rays, U/S, labs)? Why? @ -None What meds were considered but not given or refused? Why? @ -None Did you discuss the management of the patient with other professionals (professionals i.e. , PA, INSURANCE COUNSEL, lab, RT, psych nurse, social worker palliative care, tire changer aircraft, teacher, housing management officer, showcase maker)? Give summary @ -No Was smoking cessation discussed for >3mins.? @ -No Was critical care preformed (if so, how long)? @ -No Were there social determinants of health that impacted care today? How? ( Homelessness, low income, unemployed, alcoholism, drug addiction, transportation, low edu. Level, literacy, decrease access to med. care, [facility] [facility], rehab)? @ -No Was there de-escalation of care discussed even if they declined (Discuss DNR or withdrawal of care, Hospice)? DNR status @ -No What co-morbidities impacted this encounter? (DM, HTN, Smoking, COPD, CAD, Cancer, CVA, ARF, Chemo, Hep., AIDS, mental health diagnosis, sleep apnea, morbid obesity)? @ -None Was patient admitted / discharged? Hospital course, mention meds given and route, prescriptions, significant lab abnormalities, going to OR and other pertinent info. @ -Patient presents with back pain with flank pain. Seems to be muscu loskeletal but cannot definitively rule out intra-abdominal process at this time. We will obtain abdominal workup as well as CT imaging of the lumbar spine and abdomen pelvis. Patient be symptomatically treated with IV fluids and analgesia medications. Patient was in agreement this plan. EKG shows no signs of acute ischemia. Laboratory studies are all within acceptable limits. CT imaging of the spine revealed the slipped disc as well as chronic degenerative changes. CT imaging the abdomen pelvis revealed the hemangioma of the liver as well as an enlarged lymph node on the left side with pulmonary nodules in the right lung. Discussed the spine findings with the patient. Laboratory studies unremarkable. Patient be discharged home at this time with analgesia medications as well as follow-up with spine surgery. Patient was in agreement this plan. After discharge, I did contact the patient regarding the CT abdomen pelvis findings. He did express understanding that he had an hemangioma in his liver as well as an enlarged lymph node on the left diaphragm as well as pulmonary no dules. Discussed that it could be at worst malignancy or cancer. He understands he needs follow-up with his PCP for further imaging within the next 1 to 2 months. Strict return precautions were discussed. He did asked that I call back and leave this information and no voicemail which was done. I will provide the patient with a prescription for lidocaine patch, Neurontin. I instructed the patient to follow up with their PCP in the next 1-3 days. I provided contact information for follow up with orthopedic finish specialist. I explained that the patient should return to the emergency department if they experience any worsening symptoms. Strict return precautions were discussed with the patient. The patient expressed understanding of these instructions. I answered all questions that the patient had. The patient was discharged home in fair condition with their prescriptions and follow up information. Undiagnosed new problem with uncertain prognosis? @ -No Drug Therapy requiring intensive monitoring for toxicity (Heparin, Nitro, Insulin, Cardizem)? @ -No Were any procedures done? @ -No Diagnosis/symptom? @ -Back pain, bulging disc, lumbar radiculopathy, pulmonary nodules, enlarged lymph node Acute, or Chronic, or Acute on Chronic? @ -Acute Uncomplicated (without systemic symptoms) or Complicated (systemic symptoms)? @ -Complicated Side effects of treatment? @ -None Exacerbation, Progression, or Severe Exacerbation] @ -No Poses a threat to life or bodily function? @ -Unlikely at this time - Lab Data Result diagrams: 07/23/24 10:59 07/23/24 10:59 Lab Results 07/23/24 07/23/24 07/23/24 Range/Units 10:59 10:59 10:59 WBC 9.8 (3.8-10.6) k/uL RBC 5.58 (4.30-5.90) m/uL Hgb 17.4 (13.0-17.5) gm/dL Hct 51.7 (39.0-53.0) % MCV 92.7 (80.0-100.0) fL MCH 31.1 (25.0-35.0) pg MCHC 33.6 (31.0-37.0) g/dL RDW 11.8 (11.5-15.5) % Plt Count 260 (150-450) k/uL MPV 7.0 Neutrophils % 65 % Lymphocytes % 26 % Monocytes % 5 % Eosinophils % 2 % Basophils % 1 % Neutrophils # 6.3 (1.3-7.7) k/uL Lymphocytes # 2.5 (1.0-4.8) k/uL Monocytes # 0.5 (0-1.0) k/uL Eosinophils # 0.2 (0-0.7) k/uL Basophils # 0.1 (0-0.2) k/uL PT 10.3 (10.0-12.5) sec INR 0.9 (<1.2) APTT 27.2 (22.0-30.0) sec Sodium 137 (137-145) mmol/L Potassium 4.3 (3.5-5.1) mmol/L Chloride 108 H (98-107) mmol/L Carbon Dioxide 24 (22-30) mmol/L Anion Gap 5 mmol/L BUN 12 (9-20) mg/dL Creatinine 0.70 (0.66-1.25) mg/dL Est GFR (CKD-EPI)AfAm >90 (>60 ml/min/1.73 sqM) Est GFR (CKD-EPI)NonAf >90 (>60 ml/min/1.73 sqM) Glucose 103 H (74-99) mg/dL Plasma Lactic Acid Nirav (0.7-2.0) mmol/L Calcium 8.8 (8.4-10.2) mg/dL Total Bilirubin 0.6 (0.2-1.3) mg/dL AST 22 (17-59) U/L ALT 31 (4-49) U/L Alkaline Phosphatase 77 (38-126) U/L Total Protein 7.1 (6.3-8.2) g/dL Albumin 4.3 (3.5-5.0) g/dL Amylase 56 (30-110) U/L Lipase 124 (23-300) U/L Urine Color Urine Appearance (Clear) Urine pH (5.0-8.0) Ur Specific Conway (1.001-1.035) Urine Protein (Negative) Urine Glucose (UA) (Negative) Urine Ketones (Negative) Urine Blood (Negative) Urine Nitrite (Negative) Urine Bilirubin (Negative) Urine Urobilinogen (<2.0) mg/dL Ur Leukocyte Esterase (Negative) 07/23/24 07/23/24 Range/Units 10:59 11:31 WBC (3.8-10.6) k/uL RBC (4.30-5.90) m/uL Hgb (13.0-17.5) gm/dL Hct (39.0-53.0) % MCV (80.0-100.0) fL MCH (25.0-35.0) pg MCHC (31.0-37.0) g/dL RDW (11.5-15.5) % Plt Count (150-450) k/uL MPV Neutrophils % % Lymphocytes % % Monocytes % % Eosinophils % % Basophils % % Neutrophils # (1.3-7.7) k/uL Lymphocytes # (1.0-4.8) k/uL Monocytes # (0-1.0) k/uL Eosinophils # (0-0.7) k/uL Basophils # (0-0.2) k/uL PT (10.0-12.5) sec INR (<1.2) APTT (22.0-30.0) sec Sodium (137-145) mmol/L Potassium (3.5-5.1) mmol/L Chloride (98-107) mmol/L Carbon Dioxide (22-30) mmol/L Anion Gap mmol/L BUN (9-20) mg/dL Creatinine (0.66-1.25) mg/dL Est GFR (CKD-EPI)AfAm (>60 ml/min/1.73 sqM) Est GFR (CKD-EPI)NonAf (>60 ml/min/1.73 sqM) Glucose (74-99) mg/dL Plasma Lactic Acid Nirav 1.5 (0.7-2.0) mmol/L Calcium (8.4-10.2) mg/dL Total Bilirubin (0.2-1.3) mg/dL AST (17-59) U/L ALT (4-49) U/L Alkaline Phosphatase (38-126) U/L Total Protein (6.3-8.2) g/dL Albumin (3.5-5.0) g/dL Amylase (30-110) U/L Lipase (23-300) U/L Urine Color Colorless Urine Appearance Clear (Clear) Urine pH 5.5 (5.0-8.0) Ur Specific [place] 1.007 (1.001-1.035) Urine Protein Negative (Negative) Urine Glucose (UA) Negative (Negative) Urine Ketones Negative (Negative) Urine Blood Negative (Negative) Urine Nitrite Negative (Negative) Urine Bilirubin Negative (Negative) Urine Urobilinogen <2.0 (<2.0) mg/dL Ur Leukocyte Esterase Negative (Negative) - EKG Data -: EKG Interpreted by Me EKG Comments: 12-lead Electrocardiogram Interpretation Note EKG was reviewed and interpreted by myself. 12-lead ECG performed at 1055 is interpreted by me as revealing normal sinus rhythm at a rate of 78 beats per minute. Henrietta is normal. MT interval is 129 ms, QRS durations 84 ms, QTc is 394 ms.. There were no ST or T wave abnormalities to suggest myocardial ischemia or injury. R wave progression across the precordium was satisfactory. By my interpretation this EKG is non-diagnostic for acute ischemia. Disposition Clinical Impression: Back pain, Bulging disc, Lumbar radiculopathy, Pulmonary nodule, Lymph node enlargement Disposition: HOME SELF-CARE Condition: Fair Instructions (If sedation given, give patient instructions): Acute Low Back Pain (ED) Additional Instructions: You have lumbar radiculopathy as well as a bulging disc. Use symptomatic relief with [id number] analgesia medications as well as the prescriptions I will provide. Follow-up with a finish specialist. Return if worsening symptoms. Follow-up with PCP in the next 1 to 3 days. Prescriptions: Lidocaine 4% Patch 1 patch TOPICAL DAILY 14 Days #14 patch Gabapentin [Neurontin] 100 mg PO TID PRN 5 Days #15 cap PRN Reason: Pain Is patient prescribed a controlled substance at d/c from ED?: No Referrals: Nonstaff,Physician [REFERRING] - 1-2 days Mihai Michel DO [Doctor of Osteopathic Medicine] - 1-2 days Forms: Area PCPs Time of Disposition: 13:56
--- NOTE | 2024-07-23 13:03 | CT ---
EXAMINATION TYPE: CT lumbar spine w con DATE OF EXAM: 07/23/2024 11:54 AM COMPARISON: None. CLINICAL INDICATION: Male, 63 years old with history of left lower back pain, Left lower back pain TECHNIQUE: CT of the lumbar spine is performed on a spiral scan at 3 mm thick sections. Reconstructed images are performed in the coronal and sagittal planes. Contrast used:100 mL of Isovue 300 with IV Contrast, (none if empty) Oral contrast used: (none if empty) CT DLP: Combined 1896.2 mGycm, Automated exposure control for dose reduction was used. FINDINGS: T12-L1: No focal disc herniation or significant disc bulge is evident. No spinal canal stenosis or neural foraminal stenosis is present. L1-L2: No focal disc herniation or significant disc bulge is evident. No spinal canal stenosis. Mil d foraminal narrowing is present. L2-L3: No focal disc herniation or significant disc bulge is evident. No spinal canal stenosis. Mil d foraminal narrowing is present L3-L4: Broad-based disc bulges mildly into thecal sac flattening. No spinal canal stenosis. There is moderate right foraminal stenosis L4-L5: Mild disc bulge is present with anterior thecal sac flattening. No AP spinal canal stenosis is present. Facet hypertrophy is present. Severe left foraminal stenosis is present, moderate right for aminal narrowing is present. L5-S1: No focal disc herniation or significant disc bulge is evident. No spinal canal stenosis. Mod erate to severe right foraminal narrowing is present. Vertebral alignment appears normal. IMPRESSION: Disc bulging present at L3-4 and L4-5 with mild anterior thecal sac compression without stenosis. 2. Moderate to severe foraminal stenosis is present within the mid and lower lumbar spine discussed a kristin. [facility], , 07/23/2024 1:00 PM
[2024-07-23] MEDS: methylPREDNISolone SOD SUCCI 125 MG/2 ML VIAL IV STA (13:59)
[2024-07-23] MEDS: GABAPENTIN 100 MG CAP PO STA (14:02)
[2024-07-23] MEDS: ACET/COD 300 MG/30 MG STARTER PACK 6 TAB BTL PO STA (14:36)
[2024-07-23 14:42] VITALS: BP 134/87
== END 2024-07-23 14:43 | disposition home or self-care (01) ==
LOC: EC 10:10
DX: M51.16 Intervertebral disc disorders with radiculopathy, lumbar region (principal); M48.061 Spinal stenosis, lumbar region without neurogenic claudication; R91.1 Solitary pulmonary nodule; R59.9 Enlarged lymph nodes, unspecified; F17.200 Nicotine dependence, unspecified, uncomplicated
CPT/HCPCS: 99284; 96374; 96375 ×3; 96376; 96361; 36415; 93005; 80053; 82150; 83605; 83690; 85025; 85610; 85730; 81003; 72132; 74177; J2270; J2405; Q9967; J2919; J2470

== ENCOUNTER → 2024-11-25 | Outpatient (CLI) | payer MEDICARE ==
[2024-11-25 15:06] LABS: African American GFR (CKD) >90 (>60 ml/min/1.73 sqM); Blood Urea Nitrogen 9 mg/dL (9-20); Non-African American GFR(CKD) >90 (>60 ml/min/1.73 sqM)
--- NOTE | 2024-11-25 15:42 | CT ---
CT chest with contrast. HISTORY: Subdiaphragmatic mass discovered on CT abdomen and pelvis dated 07/23/2024. COMPARISON: CT abdomen and pelvis dated 07/23/2024. TECHNIQUE: Multiple axial images were obtained through the thorax following IV contrast material. FINDINGS: There are marked emphysematous changes with an upper lobe predominance. There is a 8.3 mm juxtapleural fissural cyst on the right. There are multiple sub-6 mm nodules bilate rally. There is no airspace consolidation. There is no pleural effusion or pneumothorax. There is mild pleural thickening in the lingula. The heart and great vessels are normal. There is no mediastinal, hilar or axillary adenopathy. There is a 2.3 x 2.0 cm subdiaphragmatic mass with a CT density value consistent with cysts. It is un changed compared to the prior study dated 07/23/2024. IMPRESSION: 1. Stable subdiaphragmatic cyst as described above. 2. Marked emphysematous changes. 3. Multiple lung nodules. In this high-risk patient, CT chest in 6 months is recommended to confirm s tability of the subcutaneous diaphragmatic cyst and the lung nodules. 4. No acute cardiopulmonary disease. [facility], , 11/25/2024 3:40 PM
== END | disposition home or self-care (01) ==
LOC: RADCTMAIN 14:25
PROVIDERS: ATTEND Family Medicine
DX: J98.4 Other disorders of lung (principal); J43.9 Emphysema, unspecified; R91.8 Other nonspecific abnormal finding of lung field; K65.1 Peritoneal abscess
CPT/HCPCS: 82565; 84520; 71260; 36415; Q9967